=== PATIENT | male | born 1965 | race African-American/Black ===

== ENCOUNTER 2019-04-18 19:09 | Emergency (ER) | payer SELFPAY ==
[~2019-04-18] VITALS: Ht 175.3 cm; Wt 70.0 kg
[2019-04-18 19:11] VITALS: BP 135/95
== END 2019-04-19 00:04 | disposition left against medical advice (07) ==
LOC: ER 19:09
DX: F41.9 Anxiety disorder, unspecified (principal); Z53.21 Procedure and treatment not carried out due to patient leaving prior to being seen by health care provider

== ENCOUNTER 2019-06-01 14:48 | Emergency (ER) | payer MEDICAID, OTHER ==
[~2019-06-01] VITALS: Ht 175.3 cm; Wt 98.0 kg
[2019-06-01 18:58] VITALS: BP 144/81
== END 2019-06-01 22:00 | disposition left against medical advice (07) ==
LOC: ER 14:48
DX: Z53.21 Procedure and treatment not carried out due to patient leaving prior to being seen by health care provider (principal)